=== PATIENT | female | born 1955 | race Caucasian/White ===

== ENCOUNTER → 2023-11-10 11:10 | Outpatient (REF) | payer MEDICARE, OTHER, SELFPAY | LOC: RAD 11:10 | PROVIDERS: ATTENDING PHYSICIAN Nurse Practitioner Family | DX: M54.41 Lumbago with sciatica, right side (principal); M54.42 Lumbago with sciatica, left side; R10.2 Pelvic and perineal pain | CPT/HCPCS: 72110; 72170 ==

== ENCOUNTER → 2023-11-21 11:16 | Outpatient (REF) | payer MEDICARE, OTHER, SELFPAY | LOC: HWRAD 11:16 | PROVIDERS: ATTENDING PHYSICIAN Internal Medicine Rheumatology; FAMILY PHYSICIAN Internal Medicine Geriatric Medicine | DX: M81.0 Age-related osteoporosis without current pathological fracture (principal); Z12.31 Encounter for screening mammogram for malignant neoplasm of breast | CPT/HCPCS: 77063; 77067; 77080 ==

== ENCOUNTER → 2024-02-24 11:03 | Outpatient (REF) | payer MEDICARE, OTHER, SELFPAY | LOC: HWRAD 11:03 | PROVIDERS: ATTENDING PHYSICIAN Internal Medicine Geriatric Medicine | DX: Z87.891 Personal history of nicotine dependence (principal) | CPT/HCPCS: 71271 ==

== ENCOUNTER → 2024-03-05 13:54 | Outpatient (REF) | payer MEDICARE, OTHER, SELFPAY | LOC: HWRAD 13:54 | PROVIDERS: ATTENDING PHYSICIAN Internal Medicine Geriatric Medicine | DX: E78.2 Mixed hyperlipidemia (principal); I10 Essential (primary) hypertension | CPT/HCPCS: 75571 ==

== ENCOUNTER → 2024-03-08 12:10 | Outpatient (REF) | payer MEDICARE, OTHER, SELFPAY | LOC: RCS 12:10 | PROVIDERS: ATTENDING PHYSICIAN Internal Medicine Geriatric Medicine; REFERRING PHYSICIAN Internal Medicine Cardiovascular Disease | DX: R93.1 Abnormal findings on diagnostic imaging of heart and coronary circulation (principal) | CPT/HCPCS: 93017; 93350 ==

== ENCOUNTER → 2024-08-03 09:35 | Outpatient (REF) | payer MEDICARE, OTHER, SELFPAY | LOC: HWRAD 09:35 | PROVIDERS: ATTENDING PHYSICIAN Internal Medicine Rheumatology; FAMILY PHYSICIAN Internal Medicine Geriatric Medicine | DX: M16.10 Unilateral primary osteoarthritis, unspecified hip (principal) | CPT/HCPCS: 73523 ==

== ENCOUNTER → 2024-11-21 09:23 | Outpatient (REF) | payer MEDICARE, OTHER, SELFPAY | LOC: HWWDC 09:23 | PROVIDERS: ATTENDING PHYSICIAN Internal Medicine Geriatric Medicine | DX: Z12.31 Encounter for screening mammogram for malignant neoplasm of breast (principal) | CPT/HCPCS: 77063; 77067 ==

== ENCOUNTER 2024-11-24 07:25 | Emergency (ER) | payer MEDICARE, OTHER, SELFPAY ==
[2024-11-24 07:34] VITALS: BP 166/95
[2024-11-24 07:52] VITALS: BMI 26.4
[2024-11-24 07:55] VITALS: BP 180/85
[2024-11-24 08:00] VITALS: BP 166/78
--- NOTE | 2024-11-24 08:05 | ED.GENMED ---
History of Present Illness
<Tavo Manning PA-C - Last Filed: 11/24/24 11:42>
General
Chief Complaint: Chest Pain
Source: patient
Exam Limitations: none
Time Seen by Provider: 11/24/24 07:40
History of Present Illness
History of Present Illness:
69-year-old female with history of hyperlipidemia and family history of cardiovascular disease presents complaining of onset of chest pain. She describes substernal chest pain that started about 40 minutes ago that radiated to the left arm and jaw.
She was just waking up getting ready for the day and starting her breakfast. There was no shortness of breath nausea or diaphoresis. No radiation of pain to the back. The pain was not pleuritic. She denies any recent travel or surgery. No leg
swelling or calf pain. She states has been under a lot of stress lately. She had a similar episode 2 days ago. She denies any exertional component. She has not [place] her reflux initially thought her chest discomfort was her GERD. She states
her chest symptoms since the onset today have improved but her jaw and arm pain persist
Past History
<Tavo Manning PA-C - Last Filed: 11/24/24 11:42>
Past History
ED Past Medical History: Hypercholesterolemia and Psychiatric (anxiety, stated on lexapro early January)
ED Past Surgical History: None
Social History
Tobacco: Non-smoker
Phy Exam
<Tavo Manning PA-C - Last Filed: 11/24/24 11:42>
Physical Exam
Physical Exam:
General: Well-appearing female no acute respiratory distress
HEENT: Normocephalic atraumatic
Heart: Regular rate and rhythm no murmurs
Lungs: Clear no wheeze
Extremities: No cyanosis or edema
Scores
<Tavo Manning PA-C - Last Filed: 11/24/24 11:42>
Heart Score for Chest Pain Patients
STEMI patient?: No
History: Slightly or Non-Suspicious
ECG: Normal
Age: >/= 65 years
Risk Factors: 1 or 2 Risk Factors
Troponin: </= Normal Limit
Heart Score for Chest Pain Patients: 3
Heart Score Risk: 2.5% MACE over next 6 weeks
Course
Jenniferlt;Tavo Manning PA-C - Last Filed: 11/24/24 11:42>
Orders/Labs/Results
Orders:
Orders
11/24/24 07:46
Electrocardiogram (*1) Urgent
Reason for Study: Chest Pain
Cardiac Monitoring- Treatment ONCE
IV Insert/Care/Rem.- Treatment PRN
11/24/24 07:47
EKG- Treatment ONCE
11/24/24 08:01
CR Chest - 2 Views Urgent
Comment:
Reason For Exam: chest pain
11/24/24 08:02
Complete Blood Count/With Diff Urgent
Comprehensive Metabolic Panel Urgent
Troponin I Urgent
11/24/24 10:59
Troponin I Urgent
11/24/24 11:00
Electrocardiogram (*1) Urgent
Reason for Study: Chest Pain
EKG- Treatment ONCE
Abnormal Lab Results
11/24/24
08:02
MCHC 32.7 L g/dL
(33.0-37.0)
MPV 10.6 H fL
(7.4-10.4)
Absolute Monos (auto) 0.7 H 10^3/uL
(0.1-0.6)
Lymphocytes % 16.7 L %
(20.5-51.1)
BUN 18 H mg/dl
(7-17)
11/24/24 08:02
11/24/24 08:02
Vital Signs
Initial and Last Documented VS:
Initial Vital Signs
Temp Pulse Resp BP Pulse Ox
98.2 F 104 18 166/95 98
11/24/24 07:34 11/24/24 07:34 11/24/24 07:34 11/24/24 07:34 11/24/24 07:34
Last Documented Vital Signs
Temp Pulse Resp BP Pulse Ox
98.2 F 91 17 138/79 98
11/24/24 07:34 11/24/24 11:00 11/24/24 11:00 11/24/24 11:00 11/24/24 11:00
<Leo Campos, DO - Last Filed: 11/24/24 10:55>
Orders/Labs/Results
Orders:
Orders
11/24/24 07:46
Electrocardiogram (*1) Urgent
Reason for Study: Chest Pain
Cardiac Monitoring- Treatment ONCE
IV Insert/Care/Rem.- Treatment PRN
11/24/24 07:47
EKG- Treatment ONCE
11/24/24 08:01
CR Chest - 2 Views Urgent
Comment:
Reason For Exam: chest pain
11/24/24 08:02
Complete Blood Count/With Diff Urgent
Comprehensive Metabolic Panel Urgent
Troponin I Urgent
11/24/24 10:59
Troponin I Urgent
11/24/24 11:00
Electrocardiogram (*1) Urgent
Reason for Study: Chest Pain
EKG- Treatment ONCE
Abnormal Lab Results
11/24/24
08:02
MCHC 32.7 L g/dL
(33.0-37.0)
MPV 10.6 H fL
(7.4-10.4)
Absolute Monos (auto) 0.7 H 10^3/uL
(0.1-0.6)
Lymphocytes % 16.7 L %
(20.5-51.1)
BUN 18 H mg/dl
(7-17)
11/24/24 08:02
11/24/24 08:02
Vital Signs
Initial and Last Documented VS:
Initial Vital Signs
Temp Pulse Resp BP Pulse Ox
98.2 F 104 18 166/95 98
11/24/24 07:34 11/24/24 07:34 11/24/24 07:34 11/24/24 07:34 11/24/24 07:34
Last Documented Vital Signs
Temp Pulse Resp BP Pulse Ox
98.2 F 91 17 138/79 98
11/24/24 07:34 11/24/24 11:00 11/24/24 11:00 11/24/24 11:00 11/24/24 11:00
<Tavo Manning PA-C - Last Filed: 11/24/24 11:42>
MDM/Problems Addressed
Differential Diagnosis Includes:
Chest pain. Consider ACS versus reflux versus PE but less likely without any risk factors and normal vital signs and no pleuritic component. Symptoms are improving. Do not suspect dissection
EKG shows sinus rhythm with a rate of 99 no ischemic changes
Given episode starting 40 minutes ago we will check troponin now and wait for a delta. X-ray pending
<Tavo Manning PA-C - Last Filed: 11/24/24 11:42>
*Critical Care Note
Total Time (30-74mins, 75-104mins- exclusive of procedures): Not Applicable
<Tavo Manning PA-C - Last Filed: 11/24/24 11:42>
Update Note
Update Note:
Initial and repeat troponin undetectable. Patient reassessed and feeling improved. Do not suspect ACS. Given resolution of symptoms do not suspect dissection or PE. Will advise follow-up with cardiology. Chest pain hotline activated. Return
precautions were given
ED Attending Note
<Tavo Manning PA-C - Last Filed: 11/24/24 11:42>
-
Portions of this chart may have been created with voice recognition software.� Occasional wrong word or��sound alike� substitutions may have occurred due to the inherent limitations of voice recognition software.
<Leo Campos DO - Last Filed: 11/24/24 10:55>
ED Attending Note
Patient seen and examined by attending physician: Yes
I performed the substantive portion of visit, reviewed & personally made and approve the management plan that is documented in note by myself or EDUIN.: Yes
ED Attending Note:
I have seen and evaluated the patient with a [id number] encounter. I have spoken to the advance practicer provider and involved in the medical history, the physical exam, medical decision making.
Evaluation and management service: agree unless noted differently below.
Results interpretation: agree unless noted differently below.
Focused HPI: 69-year-old female presenting with resolved chest pain. She noted a few days ago. She dismisses symptoms but developed the pain again earlier today. She had an issue like this a few years ago with a negative workup. She does
follow-up with cardiology.. Symptoms do not appear to be worse with exertion
Physical exam: Sitting bed comfortably. Heart regular rate and rhythm. No leg edema
Medical Decision Making: Will obtain 2 troponin rule out and have patient follow-up with cardiology.
Discharge Plan
Departure
Patient Disposition: Home (Routine Discharge)
Date of Disposition: 11/24/24
Time of Disposition: 11:42
Patient with high blood pressure during this ER visit?: No
Discharge Problem:
Chest pain
Instructions: Chest Pain DCA Follow Up
Referrals:
Keon Washburn MD [Family Provider] -
Activity Restrictions/Additional Instructions:
Please return here for worsening symptoms otherwise follow-up with your e marketing specialist. They should call you to discuss your visit from today
Interventions
Interventions:
*Risk Screen - Suicide Last Done: 11/24/24 07:34
*General Assessment Last Done: 11/24/24 08:08
*Neglect/Abuse Screening Last Done: 11/24/24 07:34
*ED- Fall Risk Assessment Last Done: 11/24/24 08:08
*ED COVID-19 Vaccine History Last Done: 11/24/24 08:08
ED- Cardiac Assessment Last Done: 11/24/24 08:10
Discharge Date and Time
Print Language: MOLDOVAN
[2024-11-24 08:12] LABS: % Basophils 0.2 % (0-2); % Eosinophils 0.6 % (0-6); % Immature Granulocytes 0.2 % (0-0.5); % Lymphocytes 16.7 % (20.5-51.1); % Monocytes 8.1 % (1.7-9.3); % Neutrophils 74.2 % (42.2-75.2); Absolute Eosinophils 0.1 10^3/uL (0-0.7); Absolute Lymphocytes 1.4 10^3/uL (1.2-3.4); Absolute Monocytes 0.7 10^3/uL (0.1-0.6); Absolute Neutrophils 6.1 10^3/uL (1.4-6.5); Hematocrit 40.7 % (37.0-47.0); Hemoglobin 13.3 g/dL (12.0-16.0); Mean Corp Hgb Conc. 32.7 g/dL (33.0-37.0); Mean Corpuscular Hgb 27.5 pg (27.0-31.0); Mean Corpuscular Volume 84.1 fL (81.0-99.0); Mean Platelet Volume 10.6 fL (7.4-10.4); Nucleated Red Blood Cells % 0 %; Platelet Count 234 10^3/uL (130-400); Red Blood Cell Count 4.84 10^6/uL (4.20-5.40); Red Cell Dist. Width 12.5 % (11.5-14.5); White Blood Cell Count 8.2 10^3/uL (4.8-10.8)
[2024-11-24 08:25] LABS: ALT (SGPT) 11 U/L (0-35); AST (SGOT) 22 U/L (14-36); Albumin 4.5 g/dl (3.5-5.0); Alkaline Phosphatase 62 U/L (38-126); Blood Urea Nitrogen 18 mg/dl (7-17); Calcium 9.6 mg/dl (8.4-10.2); Carbon Dioxide 27 mmol/L (22-30); Chloride 106 mmol/L (98-107); Estimated Creatinine Clearance 63 ml/min; Glucose 92 mg/dl (70-99); Potassium 3.6 mmol/L (3.5-5.1); Sodium 143 mmol/L (135-145); Total Bilirubin 0.5 mg/dl (0.2-1.3); Total Protein 7.1 g/dl (6.3-8.2); eGFR > 60.00
[2024-11-24 08:36] LABS: Troponin I < 0.012 ng/ml
--- NOTE | 2024-11-24 08:53 | EDRN ---
Ben Manning PA in to see pt and gave pt water to drink at this time. Pt is awaiting a repeat troponin to be done at 11:00
[2024-11-24 09:00] VITALS: BP 148/94
[2024-11-24 10:00] VITALS: BP 138/78
[2024-11-24 11:00] VITALS: BP 138/79
--- NOTE | 2024-11-24 11:02 | EDRN ---
Pt eating a boxed lunch at this time. Repeat troponin drawn and sent.
[2024-11-24 11:35] LABS: Troponin I < 0.012 ng/ml
== END 2024-11-24 11:59 | disposition home or self-care (01) ==
LOC: EMR 07:25
PROVIDERS: Physician Assistant; EMERGENCY PHYSICIAN Student in an Organized Health Care Education/Training Program; FAMILY PHYSICIAN Internal Medicine Geriatric Medicine
DX: R07.89 Other chest pain (principal); E78.00 Pure hypercholesterolemia, unspecified
CPT/HCPCS: 99285; 71046; 80053; 84484; 85025; 93005

== ENCOUNTER → 2024-12-13 11:54 | Outpatient (REF) | payer MEDICARE, OTHER, SELFPAY | LOC: HWRAD 11:54 | PROVIDERS: ATTENDING PHYSICIAN Internal Medicine Rheumatology; FAMILY PHYSICIAN Internal Medicine Geriatric Medicine | DX: M19.011 Primary osteoarthritis, right shoulder (principal); M19.012 Primary osteoarthritis, left shoulder | CPT/HCPCS: 73030 ==

== ENCOUNTER → 2024-12-24 07:50 | Outpatient (REF) | payer MEDICARE, OTHER, SELFPAY | LOC: HWRCS 07:50 | PROVIDERS: ATTENDING PHYSICIAN Nurse Practitioner; FAMILY PHYSICIAN Internal Medicine Geriatric Medicine | DX: I25.10 Atherosclerotic heart disease of native coronary artery without angina pectoris (principal); E78.2 Mixed hyperlipidemia | CPT/HCPCS: 78452; 93017; A9500 ==

== ENCOUNTER 2024-12-28 08:22 | Day surgery (SDC) | payer MEDICARE, OTHER, SELFPAY ==
[2024-12-28] VITALS (13 sets, daily range): BP systolic 128–176; BP diastolic 82–91
[2024-12-28 09:14] LABS: Hematocrit 40.7 % (37.0-47.0); Mean Corp Hgb Conc. 31.9 g/dL (33.0-37.0); Mean Corpuscular Hgb 27.7 pg (27.0-31.0); Mean Corpuscular Volume 86.6 fL (81.0-99.0); Mean Platelet Volume 11.1 fL (7.4-10.4); Platelet Count 238 10^3/uL (130-400); Red Cell Dist. Width 13.2 % (11.5-14.5); White Blood Cell Count 6.9 10^3/uL (4.8-10.8)
[2024-12-28] MEDS: LOW STRENGTH ASPIRIN 324 MG PO (09:24)
[2024-12-28 09:26] LABS: Blood Urea Nitrogen 13 mg/dl (7-17); Calcium 9.4 mg/dl (8.4-10.2); Carbon Dioxide 30 mmol/L (22-30); Chloride 102 mmol/L (98-107); Glucose 96 mg/dl (70-99); Potassium 4.3 mmol/L (3.5-5.1); Sodium 141 mmol/L (135-145); eGFR > 60.00
[2024-12-28] MEDS: NSS 100 IV (11:45)
--- NOTE | 2024-12-28 12:02 | ITS.CL.CATH ---
Chemistry Quality Control Technician - Catheterization
Cardiac Catheterization
Procedure Report:
LEFT HEART CATHETERIZATION
Date of Procedure: December 28, 2024
Referring: Dr. Art Hernandez
PROCEDURES:
1. Left heart catheterization with coronary and single-plane left ventriculography
INDICATION: This is a 69-year-old female who reported the onset of exertional chest arm and neck discomfort. Her symptoms have persisted. A stress study had normal perfusion and normal LVEF. She did have [address] depression on her
electrocardiogram that resolved quickly in recovery. She is now referred for coronary angiography in the setting of ongoing symptoms.
ACCESS: Right radial artery, 6 Romansh sheath using ultrasound guidance
HEMODYNAMICS : (mmHg)
AO (s/d) : 187/95, 132
LV (s/d) : 214/16
LVEDP : 30
CORONARY FINDINGS
DOMINANCE: Right
LEFT MAIN: Normal
LEFT ANTERIOR DESCENDING: The LAD arises normally from the left main and runs as a medium to large caliber vessel in the anterior interventricular groove. The LAD has only minor luminal irregularities. The first diagonal branch arises from the
proximal third of the LAD and is a medium caliber vessel. The diagonal bifurcates into a medium and small caliber daughter branch. The smaller caliber daughter branch has a 60% stenosis just beyond the bifurcation. The larger daughter branch has
minor irregularity
CIRCUMFLEX: Small caliber vessel supplying a small OM1 and small OM 2
RIGHT CORONARY ARTERY: The right coronary artery is a dominant vessel that has a 40% proximal stenosis and luminal irregularities over its course. The PDA and posterolateral branch are widely patent.
VENTRICULOGRAPHY: Left ventriculography is performed in JUAREZ projection. The digital single-plane left ventricular ejection fraction is estimated at 60% and no regional wall motion abnormalities are noted.
SEDATION: 15 minutes of procedural sedation was utilized. An independent certified medical aide was present to assist with and help manage the patient's level of consciousness and physiologic status.
RADIATION SUMMARY: Fluoro Time (min): 3.8, Dose (mGy): 224, DAP (Gy.cm2) : 16.5
Closure Device: TR band
CONCLUSIONS
1. Mild nonobstructive coronary artery disease involving the proximal RCA and the first diagonal small daughter branch
2. Preserved LV systolic function
3. Hypertension
RECOMMENDATIONS
1. Begin monitoring home blood pressures 2-3 times per week. Bring home blood pressure cuff with a list of readings to the next office visit
2. Metoprolol XL 25 mg p.o. twice daily
3. Continue statin and Zetia
4. Follow-up with Dr. Hernandez as scheduled
Copy to: Dr. Art Hernandez
== END 2024-12-28 14:35 | disposition home or self-care (01) ==
LOC: CATH 08:22
PROVIDERS: ATTENDING PHYSICIAN Internal Medicine Interventional Cardiology; FAMILY PHYSICIAN Internal Medicine Geriatric Medicine; OTHER PHYSICIAN Internal Medicine Cardiovascular Disease
DX: I25.10 Atherosclerotic heart disease of native coronary artery without angina pectoris (principal); E78.2 Mixed hyperlipidemia; Z78.9 Other specified health status; K92.2 Gastrointestinal hemorrhage, unspecified; I10 Essential (primary) hypertension; R07.89 Other chest pain; Z79.82 Long term (current) use of aspirin; Z79.899 Other long term (current) drug therapy
CPT/HCPCS: 99152; 80048; 85027; 93458; C1894; Q9967

== ENCOUNTER → 2025-03-20 13:09 | Outpatient (REF) | payer MEDICARE, OTHER, SELFPAY | LOC: HWRAD 13:09 | PROVIDERS: ATTENDING PHYSICIAN Internal Medicine Geriatric Medicine | DX: Z87.891 Personal history of nicotine dependence (principal) | CPT/HCPCS: 71271 ==